=== PATIENT | female | born 1970 | race Caucasian/White ===

== ENCOUNTER 2016-07-08 19:18 | Emergency (ER) | payer MEDICAID, OTHER ==
[~2016-07-08] VITALS: Ht 165.1 cm; Wt 79.0 kg
[2016-07-08 19:20] VITALS: Ht 165.1 cm; Wt 79.0 kg
[2016-07-08] MEDS ORDERED: KETOROLAC 30 MG INJ IM STA (19:53)
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
[2016-07-08] MEDS ORDERED: ACETAMINOPHEN 500 MG TAB PO STA (22:31)
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
[2016-07-08 22:41] VITALS: BP 119/78; PULSE 78; RESP 17; TEMP 97.3
[2016-07-08] MEDS ORDERED: ACET500C5 PO (22:41)
[2016-07-08] MEDS ORDERED: NAPR-260 PO (22:41)
[2016-07-08] MEDS ORDERED: FAMO-18 PO (22:41)
[2016-07-08] MEDS ORDERED: CYCL-319 PO (22:42)
== END 2016-07-08 22:46 | disposition home or self-care (01) ==
LOC: FTE 19:18
DX: S19.9XXA Unspecified injury of neck, initial encounter (principal); S89.91XA Unspecified injury of right lower leg, initial encounter; S09.90XA Unspecified injury of head, initial encounter; V49.40XA Driver injured in collision with unspecified motor vehicles in traffic accident, initial encounter
CPT/HCPCS: 72040; 73562; 96372; J1885; Z7502; Z7610